=== PATIENT | male | born 1955 | race Caucasian/White ===

== ENCOUNTER 2019-09-04 08:40 | Outpatient (CLI) | payer MEDICARE, SELFPAY | END 2019-09-04 08:41 | disposition home or self-care (01) | LOC: LAB 08:40 | PROVIDERS: PCP Family Medicine; Visit Provider Urology | DX: R97.20 Elevated prostate specific antigen [PSA] (principal) | CPT/HCPCS: 84153 ==

== ENCOUNTER → 2019-09-12 09:00 | Outpatient (BNVA) | payer MEDICARE, SELFPAY | PROVIDERS: PCP Family Medicine; Visit Provider Urology | DX: N40.1 Benign prostatic hyperplasia with lower urinary tract symptoms (principal); R97.20 Elevated prostate specific antigen [PSA]; R39.14 Feeling of incomplete bladder emptying | CPT/HCPCS: 81001 ==

== ENCOUNTER → 2020-03-12 12:48 | Outpatient (BNVA) | payer MEDICARE, SELFPAY | PROVIDERS: PCP Family Medicine; Visit Provider Nurse Practitioner Family | DX: R97.20 Elevated prostate specific antigen [PSA] (principal) | CPT/HCPCS: 84153 ==

== ENCOUNTER → 2020-03-17 08:44 | Outpatient (BNVA) | payer MEDICARE, SELFPAY | PROVIDERS: PCP Family Medicine; Visit Provider Urology | DX: R97.20 Elevated prostate specific antigen [PSA] (principal); N40.1 Benign prostatic hyperplasia with lower urinary tract symptoms; R39.14 Feeling of incomplete bladder emptying | CPT/HCPCS: 81003 ==

== ENCOUNTER → 2020-05-13 16:12 | Outpatient (BNVA) | payer MEDICARE, SELFPAY | PROVIDERS: PCP Family Medicine; Visit Provider Urology | DX: N40.1 Benign prostatic hyperplasia with lower urinary tract symptoms (principal); R39.14 Feeling of incomplete bladder emptying; R97.20 Elevated prostate specific antigen [PSA] | CPT/HCPCS: 81003 ==

== ENCOUNTER → 2022-10-13 13:29 | Outpatient (BNVA) | payer MEDICARE, SELFPAY | PROVIDERS: PCP Family Medicine; Visit Provider Dermatology | DX: L82.1 Other seborrheic keratosis (principal); L81.4 Other melanin hyperpigmentation; D22.5 Melanocytic nevi of trunk; L73.8 Other specified follicular disorders; Z08 Encounter for follow-up examination after completed treatment for malignant neoplasm; Z85.820 Personal history of malignant melanoma of skin; L57.0 Actinic keratosis | CPT/HCPCS: 17000; 17003; 99213 ==

== ENCOUNTER 2023-02-22 11:32 | Emergency (ER) | payer MEDICARE, SELFPAY ==
[2023-02-22 11:33] VITALS: BP 145/88; PULSE 139; RESP 20; TEMP 36.7; O2SAT 96; BMI 33.9
--- NOTE | 2023-02-22 11:35 | ECG_ITS ---
[facility] Test Date: 2023-02-22 Pat Name: Bon Leigh Department: Room: Gender: Male Demurrage Man: : 1955 Requested By: Bogdan Longoria Order Number: [id number] Barry MD: Roxana Diggs M.D. Measurements Intervals [place] Rate: 132 P: 0 MA: 0 QRS: 206 QRSD: 137 T: 17 QT: 341 QTc: 506 Interpretive Statements SINUS TACHYCARDIA INDETERMINATE AXIS RIGHT BUNDLE BRANCH BLOCK [120+ ms QRS DURATION, UPRIGHT V1, 40+ ms S IN I/aVL/V4/V5/V6] LEFT POSTERIOR FASCICULAR BLOCK [QRS AXIS > 109, INFERIOR Q] POSSIBLE ANTERIOR MYOCARDIAL INFARCTION , OF INDETERMINATE AGE [30 ms Q WAVE IN V3/V4, OR R < 0.2 mV IN V4] No previous ECG available for comparison Electronically Signed On 02-22-2023 15:21:28 FIREFIGHTER TYPE ONE by Roxana Diggs M.D. [id number]
--- NOTE | 2023-02-22 11:35 | XRR_ITS ---
PROCEDURE INFORMATION: Exam: XR Chest Exam date and time: 02/22/2023 11:38 AM Age: 67 years old Clinical indication: Cough and dyspnea; Additional info: Dyspnea/cough TECHNIQUE: Imaging protocol: Radiologic exam of the chest. Views: 1 view. COMPARISON: No relevant prior studies available. FINDINGS: Lungs: No focal consolidation. Pleural spaces: No large pleural effusion. No significant pneumothorax. Heart/Mediastinum: Cardiomediastinal silhouette is midline and normal in size. Bones/joints: No acute osseous findings. XR/XR chest 1V portable [id number] IMPRESSION: No acute cardiopulmonary findings.
[2023-02-22 11:40] VITALS: BP 145/88; PULSE 138; RESP 20; O2SAT 96
--- NOTE | 2023-02-22 11:42 | ED_ITS ---
HPI - SOB/Dyspnea 2 General: Chief Complaint: Shortness of Breath/Dyspnea Stated Complaint: Sob, Dizziness Time Seen by Provider: 02/22/23 11:33 Source: patient Mode of arrival: EMS History of Present Illness: HPI Narrative: 67-year-old male presents emergency room complaining of shortness of breath with any exertion denies any chest pain. He is also noticed tachycardia began this morning. He is a couple weeks post COVID. He never Pat tested positive himself however he was the first person in his household to get sick several other family over subsequently got upper respiratory symptoms and did test positive for COVID he seemed to have resolved without difficulty until this point. He has no no history of DVT or PE he is not on any anticoagulants no history of coronary artery disease. He has not had any chest pain or productive cough. MD elicited complaint: shortness of breath and cough Pertinent past history: other (Recent COVID infection) Onset (ago): day(s) Context: recent illness Timing: constant and progressively worsening Exacerbating factors: exertion Relieving factors: rest Associated symptoms: Reports chest congestion; Deny abdominal pain, chest pain, cough, diaphoresis, dizziness, extremity pain, fever(s), hemoptysis, lightheadedness, myalgias, nausea, orthopnea, palpitations, paresthesias, polydipsia, polyuria, rash, sense of impending doom, syncope, vomiting or other Treatment prior to arrival: none Related Data: Home oxygen amount: none Review of Systems 2 Const: Denies: fever(s), chills or diaphoresis Card: Denies: chest pain, palpitations, lightheadedness, syncope or orthopnea Resp: Reports: chest congestion; Denies: dyspnea or hemoptysis GI: Denies: abdominal pain, nausea or vomiting : Denies: dysuria, urinary frequency or urinary urgency Musc: Denies: neck pain, back pain or extremity pain Skin/Breast: Denies: rash Neuro: Denies: dizziness Endo: Denies: polyuria or polydipsia PFSH ED 2 PFSH: Medical History History of malignant melanoma History of nonmelanoma skin cancer Obesity, unspecified ED (erectile dysfunction) Elevated prostate specific antigen [PSA] Benign prostatic hyperplasia with lower urinary tract symptoms Surgical History H/O colonoscopy with polypectomy H/O vasectomy Family History Mother No problems noted. Father No problems noted. Social History Smoking and tobacco/nicotine status: never used tobacco/nicotine Alcohol intake: current Alcohol intake frequency: few times a month Substance/Drug Use: never Marital status: Current occupational status: retired Physical Exam 2 Const: COMMON NORMALS: no acute distress GENERAL APPEARANCE: cooperative and comfortable ORIENTATION/CONSCIOUSNESS: Yes awake, Yes oriented to person, Yes oriented to place and Yes oriented to time HENMT: COMMON NORMALS: normocephalic, atraumatic and hearing grossly normal bilaterally HEAD & SCALP: normocephalic and atraumatic Resp: COMMON NORMALS: normal respiratory effort, No retractions, No use of accessory muscles and clear to auscultation bilaterally AUSCULTATION: clear to auscultation bilaterally Cardio: COMMON NORMALS: regular rate, regular rhythm and No murmurs present (Cardio) RATE: regular rate RHYTHM: regular rhythm GI: COMMON NORMALS: Soft to palpation and No hepatosplenomegaly present A USCULTATION: Yes normoactive bowel sounds PALPATION: Yes Soft to palpation, No Tenderness to palpation present (GI), No Guarding due to palpation present (GI) and Yes No hepatosplenomegaly present Extremity: COMMON NORMALS: normal to inspection, capillary refill normal, no clubbing, cyanosis or edema, no calf tenderness and no pedal edema Neuro: SENSORIUM/ORIENTATION: Yes oriented to person, Yes oriented to place and Yes oriented to time Skin: COMMON NORMALS: no rashes or lesions noted GENERAL SKIN EXAM: no rashes or lesions noted Course 2 Vital Signs: Vital signs: Vital Signs Temperature 98.1 F 02/22/23 11:33 Pulse Rate 108 H 02/22/23 13:51 Respiratory Rate 18 02/22/23 13:51 Blood Pressure 84/66 02/22/23 13:51 Pulse Oximetry 98 02/22/23 13:51 Oxygen Delivery Me thod Nasal Cannula 02/22/23 13:51 Oxygen Flow Rate 2 02/22/23 13:51 MDM - SOB/Dyspnea Medical Decision Making Acute PE is suspected based on initial exam and history. CT verifies. Discussed Dr. Mcgovern he does not have saddle emboli at this time. He is already begin Lovenox if think he is going to require heparin he is heparin drip has been ordered. He did have some right heart strain on his CT as well. His A-fib flutter rate is improved with the medication however though his blood pressure has decreased but he is given a small fluid bolus. Discussed with Dr. aWrd initially plan to admit Dr. Knight seen the patient and arrange for transfer [facility] air VAC Medical Records I reviewed the patient's medical records. Lab Data I reviewed the patient's lab results. 02/22/23 11:42 02/22/23 11:42 Labs/Radiology: Radiology Impressions Chest X-Ray 02/22/23 11:35 IMPRESSION: No acute cardiopulmonary findings. Laboratory Results WBC 14.83 10^3/uL (3.29-11.43) H 02/22/23 11:42 RBC 5.12 10^6/uL (3.85-5.65) 02/22/23 11:42 Hgb 15.40 g/dL (11.27-16.99) 02/22/23 11:42 Hct 46.6 % (37-53) 02/22/23 11:42 MCV 91.0 fl (82-101) 02/22/23 11:42 MCH 30.1 pg (27-33) 02/22/23 11:42 MCHC 33.0 g/dL (30-55) 02/22/23 11:42 RDW 12.5 % (12.1-15.1) 02/22/23 11:42 Plt Count 263 10^3/cmm (157-399) 02/22/23 11:42 MPV 10.3 fL (7.4-10.4) 02/22/23 11:42 Neut % (Auto) 83.2 % 02/22/23 11:42 Lymph % (Auto) 9.0 % 02/22/23 11:42 [place] % (Auto) 6.5 % 02/22/23 11:42 Eos % (Auto) 0.3 % 02/22/23 11:42 Baso % (Auto) 0.5 % 02/22/23 11:42 Neut # (Auto) 12.34 10^3/uL (1.8-7.7) H 02/22/23 11:42 Lymph # (Auto) 1.3 10^3/uL (0.8-4.8) 02/22/23 11:42 [place] # (Auto) 1.0 10^3/uL (0.2-0.9) H 02/22/23 11:42 Eos # (Auto) 0.1 10^3/uL (0.0-0.8) 02/22/23 11:42 Baso # (Auto) 0.1 10^3/uL (0.0-0.1) 02/22/23 11:42 Nucleated RBC % (auto) 0 % 02/22/23 11:42 Nucleated RBCs # 0.0 /100WBC 02/22/23 11:42 Specimen Type Arterial 02/22/23 14:37 Sample Site Radial, right 02/22/23 14:37 ABG pH 7.39 (7.35-7.45) 02/22/23 14:37 ABG pCO2 25.0 mmHg (35-45) L 02/22/23 14:37 ABG pO2 81.5 mmHg (80.0-100.0) 02/22/23 14:37 ABG HCO3 15.2 mmol/L (22-26) L 02/22/23 14:37 ABG Base Excess -7.8 mmol/L (-2.0-2.0) L 02/22/23 14:37 [place] Test Pos 02/22/23 14:37 Hematocrit 44.6 % (42-52) 02/22/23 14:37 O2 Delivery Device Nc 02/22/23 14:37 O2 Liters/Min 2.0 % 02/22/23 14:37 V Belt Coverer ID [place] 02/22/23 14:37 Sodium 136 mmol/L (136-145) 02/22/23 11:42 Potassium 4.3 mmol/L (3.5-5.1) 02/22/23 11:42 Chloride 103 mmol/L (98-107) 02/22/23 11:42 Carbon Dioxide 18 mmol/L (22-29) L 02/22/23 11:42 Anion Gap 19.3 (5-19) H 02/22/23 11:42 BUN 29 mg/dL (8-23) H 02/22/23 11:42 Creatinine 1.4 mg/dL (0.7-1.2) H 02/22/23 11:42 GFR Calculation 50.4 mL/min (90-130) L 02/22/23 11:42 Glucose 274 mg/dL (65-115) H 02/22/23 11:42 Calculated Osmolality 298 mOsm/kg (285-295) H 02/22/23 11:42 Calcium 9.2 mg/dL (8.5-10.5) 02/22/23 11:42 Total Bilirubin 1.0 mg/dL (0.15-1.2) 02/22/23 11:42 AST 27 U/L (0-40) 02/22/23 11:42 ALT 38 U/L (0-41) 02/22/23 11:42 Alkaline Phosphatase 56 U/L (40-130) 02/22/23 11:42 Troponin T Baseline 106 ng/L (0-15) H* 02/22/23 11:42 Troponin T 120 Minute 111.7 ng/L (0-15) H 02/22/23 14:34 Delta Troponin T 5.7 ABS# (0-10) 02/22/23 14:34 Total Protein 6.5 g/dL (6.6-8.7) L 02/22/23 11:42 Albumin 4.2 g/dL (3.5-5.2) 02/22/23 11:42 Globulin 2.3 g/dL (1.3-4.6) 02/22/23 11:42 All radiology interpretation(s) finalized by discharge Discharge Plan Discharge Patient Disposition: Transfer to ED Clinical Impression: Pulmonary embolism, Atrial flutter Condition: Stable Prescriptions: No Action meloxicam 15 mg tablet 15 mg PO DAILY levothyroxine [Synthroid] 50 mcg tablet 50 mcg PO DAILY atorvastatin 20 mg tablet 20 mg PO DAILY cholecalciferol (vitamin D3) 25 mcg (1,000 unit) capsule 5,000 unit PO DAILY lysine [L-Lysine] 500 mg tablet 500 mg PO DAILY Referrals: Kiki Mitchell DO [Primary Care Provider] - Discharge Diet: Cardiac Discharge Activity: Resume usual activity Coding Level of Care Code ED Billboard Poster for Chg Fwd
--- NOTE | 2023-02-22 11:45 | CT_ITS ---
WS: [id number] CTA OF THE CHEST WITH PULMONARY EMBOLISM PROTOCOL TECHNIQUE: High-resolution contrast enhanced CTA of the chest with coronal and sagittal reformatted i lebrons with pulmonary embolism protocol. MIP images are also reviewed. CLINICAL INFORMATION: dyspnea, tachycardia, post covid COMPARISON: None. DLP: 579.[address] scans at [facility] use at least one of these dose optimization techniques: automated e xposure control; mA and/or kV adjustment per patient size (includes targeted exams where dose is matc hed to clinical indication); or iterative reconstruction. FINDINGS: Extensive filling defects in the distal main pulmonary arteries extending into the segmental and subs egmental pulmonary arteries compatible with extensive pulmonary embolus. Evidence of RIGHT heart stra in with paradoxical bowing of the interventricular septum. Reflux into the hepatic veins. No mediastinal or hilar lymphadenopathy. Lungs are well aerated. Normal GE junction. Adrenal glands a re normal. Hypertrophic changes thoracic spine. IMPRESSION: 1. Extensive bilateral pulmonary embolus with filling defects in the distal main pulmonary arteries bilaterally extending into the segmental and subsegmental pulmonary arteries bilaterally. 2. Evidence of RIGHT heart strain. Reflux of contrast into the hepatic veins. 3. Lungs are well aerated. No acute pulmonary infiltrates. No focal pneumonia or pleural fluid. Notified Bogdan Kiran DO at 02/22/2023 1:52 PM.
[2023-02-22 11:49] LABS: Basophils # 0.1 10^3/uL (0.0-0.1); Basophils % 0.5 %; Eosinophils # 0.1 10^3/uL (0.0-0.8); Eosinophils % 0.3 %; Hematocrit 46.6 % (37-53); Lymphocytes # 1.3 10^3/uL (0.8-4.8); Mean Corpuscular Hemoglobin 30.1 pg (27-33); Mean Platelet Volume 10.3 fL (7.4-10.4); Monocytes % 6.5 %; Neutrophils # 12.34 10^3/uL (1.8-7.7); Neutrophils % 83.2 %; Nucleated Red Blood Cells % 0 %; Platelet Count 263 10^3/cmm (157-399); Red Blood Count 5.12 10^6/uL (3.85-5.65); Red Cell Distribution Width 12.5 % (12.1-15.1); White Blood Count 14.83 10^3/uL (3.29-11.43)
[2023-02-22 12:06] LABS: Alanine Aminotransferase 38 U/L (0-41); Albumin Level 4.2 g/dL (3.5-5.2); Alkaline Phosphatase 56 U/L (40-130); Anion Gap 19.3 (5-19); Aspartate Amino Transferase 27 U/L (0-40); Blood Urea Nitrogen 29 mg/dL (8-23); Calcium 9.2 mg/dL (8.5-10.5); Carbon Dioxide 18 mmol/L (22-29); Chloride 103 mmol/L (98-107); Globulin 2.3 g/dL (1.3-4.6); Glomerular Filtration Rate 50.4 mL/min (90-130); Glucose 274 mg/dL (65-115); Osmolality Calculated 298 mOsm/kg (285-295); Potassium 4.3 mmol/L (3.5-5.1); Sodium 136 mmol/L (136-145); Total Protein 6.5 g/dL (6.6-8.7)
[2023-02-22 12:13] LABS: Troponin(5th) Baseline 106 ng/L (0-15)
[2023-02-22] MEDS: enoxaparin 120 mg/0.8 mL Syringe SUBCUT (12:51)
[2023-02-22] MEDS: dilTIAZem 5 mg/mL SDV 5 mL 10 MG IVP (12:51)
[2023-02-22 12:54] VITALS: BP 120/80; PULSE 117; RESP 18; O2SAT 95
[2023-02-22] MEDS: iohexol 350 mg/mL 500 mL Btl (per mL) IV (13:13)
[2023-02-22] MEDS: sodium chloride 0.9% 1,000 ML 999 ML IV (13:28)
[2023-02-22 13:30] VITALS: BP 93/69; PULSE 113; RESP 20; O2SAT 95
--- NOTE | 2023-02-22 13:35 | ECG_ITS ---
[facility] Test Date: 2023-02-22 Pat Name: Bon Leigh Department: Room: Gender: Male Sustainability Project Manager: : 1955 Requested By: Bogdan Longoria Order Number: [id number] Barry MD: Roxana Diggs M.D. Measurements Intervals [place] Rate: 114 P: 0 [place]: 0 QRS: 47 QRSD: 135 T: 2 QT: 374 QTc: 515 Interpretive Statements SINUS TACHYCARDIA INDETERMINATE AXIS RIGHT BUNDLE BRANCH BLOCK [120+ ms QRS DURATION, UPRIGHT V1, 40+ ms S IN I/aVL/V4/V5/V6] POSSIBLE ANTERIOR MYOCARDIAL INFARCTION , OF INDETERMINATE AGE [30 ms Q WAVE IN V3/V4, OR R < 0.2 mV IN V4] Compared to ECG 02/22/2023 12:11:13 Left posterior fascicular block no longer present Myocardial infarct finding still present Electronically Signed On 02-22-2023 15:23:29 BASE REMOVER by Roxana Diggs M.D. [id number]
[2023-02-22 13:51] VITALS: BP 84/66; PULSE 108; RESP 18; O2SAT 98
[2023-02-22 14:48] LABS: ABG PH Result 7.39 (7.35-7.45); Arterial Blood Gas Hematocrit 44.6 % (42-52); Base Excess ABG -7.8 mmol/L (-2.0-2.0); Blood Gas Allen Test Pos; Blood Gas Operator Identificat WALCI; Blood Gas Sample Site Radial, right; Blood Gas Sample Type Arterial; HCO3 ABG 15.2 mmol/L (22-26); Oxygen Device NC; PO2 ABG 81.5 mmHg (80.0-100.0)
[2023-02-22] MEDS: heparin drip 25,000 UNIT/500 ML PREMIX 31.75 UNIT IV (14:58)
--- NOTE | 2023-02-22 15:06 | P.TS_ITS ---
Transfer Summary Providers Date of Discharge/Transfer: 02/22/23 Primary Care Provider: Kiki Mitchell DO Transfer Plans: Anticipated date of transfer: 02/22/23 . Reason for Visit Reason for Visit Sob, Dizziness Hospital Course Hospital Course This is a pleasant 67-year-old male with a past medical history of hypothyroidism, hyperlipidemia, no history of lung disease, no history of CAD no history of strokes, no history of diabetes, does have obesity, will be out this is fairly healthy who for the last week has been sick, had fatigue, malaise, shortness of breath, cough. He has been feeling increasingly short of breath, his family members tested positive for COVID as they were also becoming sick. The reason he comes into the emergency room is that his shortness of breath is worsening to shortness of breath at rest, and he has been feeling lightheaded and dizzy as if he is get a pass out. He tells me that 5 minutes prior to be coming in the room to examine him in the emergency room he passed out, his tells me that he was not responding but then started to wake up and was a bit groggy. Patient tells me that he does not remember the event well, he might of passed out or was just really lightheaded and dizzy, but he does not have a strong recollection of the event. Currently his systolic blood pressure is 80s /60s, pulses 108, currently in and out of atrial flutter but on monitor it looks more like sinus rhythm currently, on 2 L temp is 98.1, he is alert awake, following all commands, he has received a dose of therapeutic Lovenox at about 11, because of the atrial flutter, he was given Cardizem 10 mg IV push once, heart rate still elevated, blood pressure sugars are quite soft, I discussed with him that given his CT angiogram findings of bilateral PEs, segmental subsegmental, with evidence of right heart strain his elevated troponin, now his hypotension, and his episode of passing out, he is a candidate for thrombectomy procedure. WBC 14.83, creatinine 1.4, troponin 106, cta shows 1. Extensive bilateral pulmonary embolus with filling defects in the distal main pulmonary arteries bilaterally extending into the segmental and subsegmental pulmonary arteries bilaterally. 2. Evidence of RIGHT heart strain. Reflux of contrast into the hepatic veins. 3. Lungs are well aerated. No acute pulmonary infiltrates. No focal pneumonia or pleural fluid. ABG on 2 L shows pH 7.39, pCO2 25, pO2 81.5 ? Spoke to patient and his about the risks and benefits of transfer, my worry is is that his hypotension will persist, he has a high risk of morbidity or mortality associated with his bilateral massive PEs, with evidence of right heart strain, with hypotension, ?after discussing the risks and benefits of transfer, they voiced understanding, all questions answered, agreed to proceed, ? Spoke to [facility] transfer line, spoke to their coordinator, they transferred me to the ER physician, I spoke to the ER physician Dr. Carrizales the reason for transfer was for consideration of embolectomy procedure, accepted ER to ER transfer ? Spoke to family again up given the update of the status, they are still agreeable to transfer, his blood pressures are better now 120s over 80s, he is on 2 L, heart rates in the 110s, and looks like normal sinus rhythm I can see P waves of the telemetric monitoring no recurrent episodes of passing out, ? I discussed the risks and benefits of transfer, currently he is a bit unstable, the only way to stabilize him is hopefully have him qualify for the embolectomy procedure, and have especially care team of bottom loader take care of him, discussed risks and benefits of transfer, they voiced understanding, all questions answered, shared decision making, agreed for transfer, patient will be transferred to [facility], Air-Evac, ? He received therapeutic Lovenox at 11:30 AM, given his persistent hypotension, and possible presyncope syncope symptom while in the emergency room, he will be heparinized started on a heparin drip, Cardizem drip currently on hold, I will start him on levophed Diagnosis ? Outflow shock ? Bilateral segmental subsegmental PE ? With right heart strain, with NSTEMI, ? With atrial flutter, ? With hypotension, ? With LI ? Reason for transfer is embolectomy procedure Physical Exam Const: COMMON NORMALS: no acute distress and patient oriented x3 ORIENTA TION/CONSCIOUSNESS: Yes awake, Yes oriented to person, Yes oriented to place and Yes oriented to time Eye: COMMON NORMALS: Equal, round and reactive pupils present and EOMs intact bilaterally PUPIL: Yes Equal, round and reactive pupils present Neck/C-Spine: COMMON NORMALS: full ROM and no lymphadenopathy Lymph: LYMPHATIC: no lymphadenopathy noted Resp: COMMON NORMALS: normal respiratory effort, No retractions, No use of accessory muscles and clear to auscultation bilaterally AUSCULTATION: clear to auscultation bilaterally Cardio: COMMON NORMALS: S1 normal heart sound present and S2 normal heart sound present RATE: tachycardic RHYTHM: abnormal rhythm irregularly irregular HEART SOUNDS: S1 normal heart sound present and S2 normal heart sound present GI: COMMON NORMALS: Normal to inspection, nondistended, normoactive bowel sounds present and non-tender Extremity: COMMON NORMALS: no pedal edema Neuro: COMMON NORMALS: patient oriented x3 SENSORIUM/ORIENTATION: Yes oriented to person, Yes oriented to place and Yes oriented to time Psych: COMMON NORMALS: mental status grossly normal TS Data Studies Completed and Pending Pending at discharge Category Date Time Status Troponin() 2 Hour. Timed Lab 02/22/23 14:34 Received Troponin(5th) 6 hour. Timed Lab 02/22/23 17:42 Ordered Urinalysis Stat Lab 02/22/23 11:35 Uncollected CV. echo complete* [id number] Stat Ultrasound 02/22/23 14:29 Ordered Completed Studies During Hospitalization Category Date Time Status CT angio chest PE protcl [id number] Stat Cat Scan 02/22/23 11:45 Completed XR chest 1V portable [id number] Stat Exams 02/22/23 11:35 Completed Laboratory Last Values WBC 14.83 10^3/uL (3.29-11.43) H 02/22/23 11:42 RBC 5.12 10^6/uL (3.85-5.65) 02/22/23 11:42 Hgb 15.40 g/dL (11.27-16.99) 02/22/23 11:42 Hct 46.6 % (37-53) 02/22/23 11:42 MCV 91.0 fl (82-101) 02/22/23 11:42 MCH 30.1 pg (27-33) 02/22/23 11:42 MCHC 33.0 g/dL (30-55) 02/22/23 11:42 RDW 12.5 % (12.1-15.1) 02/22/23 11:42 Plt Count 263 10^3/cmm (157-399) 02/22/23 11:42 MPV 10.3 fL (7.4-10.4) 02/22/23 11:42 Neut % (Auto) 83.2 % 02/22/23 11:42 Lymph % (Auto) 9.0 % 02/22/23 11:42 [place] % (Auto) 6.5 % 02/22/23 11:42 Eos % (Auto) 0.3 % 02/22/23 11:42 Baso % (Auto) 0.5 % 02/22/23 11:42 Neut # (Auto) 12.34 10^3/uL (1.8-7.7) H 02/22/23 11:42 Lymph # (Auto) 1.3 10^3/uL (0.8-4.8) 02/22/23 11:42 [place] # (Auto) 1.0 10^3/uL (0.2-0.9) H 02/22/23 11:42 Eos # (Auto) 0.1 10^3/uL (0.0-0.8) 02/22/23 11:42 Baso # (Auto) 0.1 10^3/uL (0.0-0.1) 02/22/23 11:42 Nucleated RBC % (auto) 0 % 02/22/23 11:42 Nucleated RBCs # 0.0 /100WBC 02/22/23 11:42 Specimen Type Arterial 02/22/23 14:37 Sample Site Radial, right 02/22/23 14:37 ABG pH 7.39 (7.35-7.45) 02/22/23 14:37 ABG pCO2 25.0 mmHg (35-45) L 02/22/23 14:37 ABG pO2 81.5 mmHg (80.0-100.0) 02/22/23 14:37 ABG HCO3 15.2 mmol/L (22-26) L 02/22/23 14:37 ABG Base Excess -7.8 mmol/L (-2.0-2.0) L 02/22/23 14:37 [place] Test Pos 02/22/23 14:37 Hematocrit 44.6 % (42-52) 02/22/23 14:37 O2 Delivery Device Nc 02/22/23 14:37 O2 Liters/Min 2.0 % 02/22/23 14:37 Financial Wellness Coach ID [place] 02/22/23 14:37 Sodium 136 mmol/L (136-145) 02/22/23 11:42 Potassium 4.3 mmol/L (3.5-5.1) 02/22/23 11:42 Chloride 103 mmol/L (98-107) 02/22/23 11:42 Carbon Dioxide 18 mmol/L (22-29) L 02/22/23 11:42 Anion Gap 19.3 (5-19) H 02/22/23 11:42 BUN 29 mg/dL (8-23) H 02/22/23 11:42 Creatinine 1.4 mg/dL (0.7-1.2) H 02/22/23 11:42 GFR Calculation 50.4 mL/min (90-130) L 02/22/23 11:42 Glucose 274 mg/dL (65-115) H 02/22/23 11:42 Calculated Osmolality 298 mOsm/kg (285-295) H 02/22/23 11:42 Calcium 9.2 mg/dL (8.5-10.5) 02/22/23 11:42 Total Bilirubin 1.0 mg/dL (0.15-1.2) 02/22/23 11:42 AST 27 U/L (0-40) 02/22/23 11:42 ALT 38 U/L (0-41) 02/22/23 11:42 Alkaline Phosphatase 56 U/L (40-130) 02/22/23 11:42 Troponin T Baseline 106 ng/L (0-15) H* 02/22/23 11:42 Total Protein 6.5 g/dL (6.6-8.7) L 02/22/23 11:42 Albumin 4.2 g/dL (3.5-5.2) 02/22/23 11:42 Globulin 2.3 g/dL (1.3-4.6) 02/22/23 11:42 Radiology Impressions Chest X-Ray 02/22/23 11:35 IMPRESSION: No acute cardiopulmonary findings. Recent Clincial Data Last Vital Signs Temp 98.1 F 02/22/23 11:33 Pulse 108 H 02/22/23 13:51 Resp 18 02/22/23 13:51 BP 84/66 02/22/23 13:51 Pulse Ox 98 02/22/23 13:51 O2 Del Method Nasal Cannula 02/22/23 13:51 O2 Flow Rate 2 02/22/23 13:51 Vital Signs Temp Pulse Resp BP Pulse Ox O2 Del Method O2 Flow Rate 02/22/23 13:51 108 H 18 84/66 98 Nasal Cannula 2 02/22/23 13:30 113 H 20 H 93/69 95 Room Air 02/22/23 12:54 117 H 18 120/80 95 Room Air 02/22/23 11:40 138 H 20 H 145/88 96 Room Air 02/22/23 11:33 98.1 F 139 H 20 H 145/88 96 Intake & Output/Weight 02/20/23 02/21/23 02/22/23 02/23/23 06:59 06:59 06:59 06:59 Weight 113.398 kg Vitals Last Vital Signs Temp 98.1 F 02/22/23 11:33 Pulse 108 H 02/22/23 13:51 Resp 18 02/22/23 13:51 BP 84/66 02/22/23 13:51 Pulse Ox 98 02/22/23 13:51 O2 Del Method Nasal Cannula 02/22/23 13:51 O2 Flow Rate 2 02/22/23 13:51 TS Medications Medications Heparin Sodium (Porcine) (Heparin 5,000 Unit/Ml Inj 1 Ml) 0 unit IV PRN PRN; Protocol PRN Reason: Heparin weight-base protocol Diltiazem HCl 100 mg/ Sodium (Chloride) 100 mls @ 0 mls/hr IV .Q0M LADONNA; Pr otocol Heparin Sodium/Sodium Chloride (Heparin Drip) 25,000 unit in 500 mls @ 0 mls/hr IV .Q0M LADONNA; Protocol Last Admin: 02/22/23 14:58 Dose: 14 unit/kg/hr, 31.75 mls/hr Discontinued Medications Diltiazem HCl (Diltiazem 5 Mg/Ml Sdv 5 Ml) 10 mg IVP ONCE ONE Stop: 02/22/23 12:24 Last Admin: 02/22/23 12:51 Dose: 10 mg Enoxaparin Sodium (Enoxaparin 120 Mg/0.8 Ml Syringe) 120 mg SUBCUT ONCE ONE Stop: 02/22/23 11:46 Last Admin: 02/22/23 12:51 Dose: 120 mg Sodium Chloride (Sodium Chloride 0.9%) 1,000 mls @ 999 mls/hr IV .Q1H1M ONE Stop: 02/22/23 14:26 Last Admin: 02/22/23 13:28 Dose: 999 mls/hr Iohexol (Iohexol 350 Mg/Ml 500 Ml Btl (Per Ml)) 0 ml IV ONCE ONE Stop: 02/22/23 13:14 Last Admin: 02/22/23 13:13 Dose: 100 ml Allergies No Known Allergies Allergy (Verified 02/22/23 12:33) Home Medications atorvastatin 20 mg tablet 20 mg PO DAILY 09/12/19 [History Confirmed 02/22/23] cholecalciferol (vitamin D3) 25 mcg (1,000 unit) capsule 5,000 unit PO DAILY 09/12/19 [History Confirmed 02/22/23] levothyroxine 50 mcg tablet (Synthroid) 50 mcg PO DAILY 09/12/19 [History Confirmed 02/22/23] lysine 500 mg tablet (L-Lysine) 500 mg PO DAILY 09/12/19 [History Confirmed 02/22/23] meloxicam 15 mg tablet 15 mg PO DAILY 09/12/19 [History Confirmed 02/22/23] Discharge Plan Discharge Patient Disposition: Transfer to ED Condition: Stable Prescriptions: No Action meloxicam 15 mg tablet 15 mg PO DAILY levothyroxine [Synthroid] 50 mcg tablet 50 mcg PO DAILY atorvastatin 20 mg tablet 20 mg PO DAILY cholecalciferol (vitamin D3) 25 mcg (1,000 unit) capsule 5,000 unit PO DAILY lysine [L-Lysine] 500 mg tablet 500 mg PO DAILY Referrals: Kiki Mitchell DO [Primary Care Provider] - Discharge Diet: Cardiac Discharge Activity: Resume usual activity Transfer Attestations Time Spent in Transfer Care: critical care time Critical Care Time (min): 45 Quality Metrics Clinical Quality Measures [ Venous Thromboembolism { Contraindication to Overlap Therapy: None; Overlap threrpy ordered; VTE Discharge Education: Medication side effects education;}] Coding Level of Care Code 45697 Total time (in minutes) for Discharge: 45
[2023-02-22 15:23] LABS: Troponin 5 2HR Delta 5.7 ABS# (0-10)
[2023-02-22 15:29] LABS: Troponin 5 2HR 111.7 ng/L (0-15)
== END 2023-02-22 16:15 ==
PROVIDERS: Family Medicine; Emergency Provider Family Medicine; PCP Family Medicine
DX: I26.99 Other pulmonary embolism without acute cor pulmonale (principal); I48.92 Unspecified atrial flutter
CPT/HCPCS: 36415; 36600; 71045; 71275; 80053; 82803; 84484; 85025; 93005; 96361; 96372; 96374; 96375; 99285; J1644; J1650; J3490; J7030; Q9967

== ENCOUNTER → 2023-10-25 09:10 | Outpatient (BNVA) | payer MEDICARE, SELFPAY | PROVIDERS: PCP Family Medicine; Visit Provider Nurse Practitioner Family | DX: L82.0 Inflamed seborrheic keratosis (principal); L82.1 Other seborrheic keratosis; L81.4 Other melanin hyperpigmentation; D22.4 Melanocytic nevi of scalp and neck; L73.8 Other specified follicular disorders; L91.8 Other hypertrophic disorders of the skin; Z85.820 Personal history of malignant melanoma of skin | CPT/HCPCS: 17110; 99213 ==

== ENCOUNTER → 2024-10-23 09:27 | Outpatient (BNVA) | payer MEDICARE, SELFPAY | PROVIDERS: PCP Family Medicine; Visit Provider Nurse Practitioner Family | DX: L91.8 Other hypertrophic disorders of the skin (principal); L73.8 Other specified follicular disorders; L82.1 Other seborrheic keratosis; L57.8 Other skin changes due to chronic exposure to nonionizing radiation; D18.01 Hemangioma of skin and subcutaneous tissue; L60.8 Other nail disorders; Z08 Encounter for follow-up examination after completed treatment for malignant neoplasm; Z85.820 Personal history of malignant melanoma of skin; Z85.828 Personal history of other malignant neoplasm of skin; D48.5 Neoplasm of uncertain behavior of skin | CPT/HCPCS: 11102; 99213 ==

== ENCOUNTER → 2024-10-30 08:02 | Outpatient (BNVA) | payer MEDICARE, SELFPAY | PROVIDERS: PCP Family Medicine; Visit Provider Podiatrist Foot & Ankle Surgery | DX: L60.8 Other nail disorders (principal); B35.1 Tinea unguium | CPT/HCPCS: 11750; 99203; J9999 ==